=== PATIENT | male | born 1985 | race African-American/Black ===

== ENCOUNTER 2018-02-07 12:18 | Emergency (ER) | payer OTHER ==
[~2018-02-07] VITALS: Ht 167.6 cm; Wt 61.2 kg
[~2018-02-07 12:18] MED LIST: CITA20TA19 PO; CLON2TAB PO; EFAV1TAB PO
--- NOTE | 2018-02-07 12:32 | NUR ---
PT TO ED DT FEELING ANXIETY SINCE MONDAY, TAKES 2MG CLONAZEPAM, ATIVAN. OUT OF MEDS AT THIS TIME. VSS
[2018-02-07 12:53] VITALS: BP 130/80
--- NOTE | 2018-02-07 12:53 | NUR ---
Patient discharged to home in stable condition. Written and verbal after care instructions given. Patient verbalizes understanding of instruction.
== END 2018-02-07 12:53 | disposition home or self-care (01) ==
LOC: ER 12:22
DX: F41.9 Anxiety disorder, unspecified (principal); F17.200 Nicotine dependence, unspecified, uncomplicated; Z88.8 Allergy status to other drugs, medicaments and biological substances
CPT/HCPCS: A4606; Z7610

== ENCOUNTER 2018-03-06 12:19 | Emergency (ER) | payer OTHER ==
[~2018-03-06] VITALS: Ht 177.8 cm; Wt 68.0 kg
[2018-03-06] MEDS ORDERED: clonazePAM 1 MG TABLET ONE (12:43)
[2018-03-06] MEDS: clonazePAM 1 MG TABLET PO ONE (12:48)
[2018-03-06 12:55] VITALS: BP 118/84
== END 2018-03-06 12:56 | disposition home or self-care (01) ==
LOC: ER 12:21
DX: F41.9 Anxiety disorder, unspecified (principal); B08.1 Molluscum contagiosum; F17.200 Nicotine dependence, unspecified, uncomplicated; F32.9 Major depressive disorder, single episode, unspecified; Z76.0 Encounter for issue of repeat prescription; Z88.8 Allergy status to other drugs, medicaments and biological substances
CPT/HCPCS: 99284; 99406; A4606; Z7610

== ENCOUNTER 2018-03-17 06:25 | Emergency (ER) | payer OTHER ==
[~2018-03-17] VITALS: Ht 160 cm; Wt 61.2 kg
--- NOTE | 2018-03-17 06:30 | NUR ---
[address] C/O ANXIETY. PT ADMITS TO TAKING METH YESTERDAY. PT AOX3 RR EVEN AND UNLABORED. NO SOB NOTED. NAD NOTED. NO NVD AT THIS TIME. PT GOWNED AND PLACED ON MONITOR WAITING FOR MD MUNGUIA.
[2018-03-17] MEDS ORDERED: clonazePAM 1 MG TABLET ONE (07:15)
[2018-03-17 07:17] VITALS: BP 140/62
--- NOTE | 2018-03-17 07:17 | NUR ---
Patient discharged to home in stable condition. Written and verbal after care instructions given. Patient verbalizes understanding of instruction.
[2018-03-17] MEDS ORDERED: clonazePAM 1 MG TABLET PO ONE (07:30)
== END 2018-03-17 07:18 | disposition home or self-care (01) ==
LOC: ER 06:26
DX: F41.9 Anxiety disorder, unspecified (principal); F32.9 Major depressive disorder, single episode, unspecified; F15.20 Other stimulant dependence, uncomplicated; Z88.8 Allergy status to other drugs, medicaments and biological substances; Z79.899 Other long term (current) drug therapy
CPT/HCPCS: 99284; A4606; Z7610

== ENCOUNTER 2018-03-21 22:17 | Emergency (ER) | payer OTHER ==
[~2018-03-21] VITALS: Ht 165.1 cm; Wt 56.7 kg
--- NOTE | 2018-03-21 22:17 | NUR ---
"COUGH/SNEEZING SINCE YESTERDAY; FEEL SOB AND ALSO ANXIOUS" LUNGS SOUND CLEAR BILATERALLY. PT IS TACHYCARDIC BUT OTHERWISE VSS NO ACUTE DISTRESS AT THIS TIME. PT IS ALERT AND ORIENTED X3 ABLE TO MAKE NEEDS KNOWN. SKIN IS WATM AND INTACT. WILL CONTINUE TO MONITOR FOR ANY CHANGES DURING THE SHIFT.
--- NOTE | 2018-03-21 23:10 | NUR ---
CALLED; IN RESTROOM
--- NOTE | 2018-03-21 23:27 | NUR ---
STILL IN RESTROOM
[2018-03-21] MEDS ORDERED: LORAZEPAM INJ 2 MG/ML VIAL IV ONE (23:30)
--- NOTE | 2018-03-21 23:30 | NUR ---
ER MD AIKEN AT BEDSIDE FOR EVAL
[2018-03-22] MEDS ORDERED: clonazePAM 1 MG TABLET PO ONE
[2018-03-22] MEDS ORDERED: clonazePAM 1 MG TABLET ONE (00:01)
[2018-03-22 00:32] VITALS: BP 119/81
== END 2018-03-22 00:34 | disposition home or self-care (01) ==
LOC: ER 22:19
DX: F41.9 Anxiety disorder, unspecified (principal); Z76.0 Encounter for issue of repeat prescription; F17.200 Nicotine dependence, unspecified, uncomplicated; Z59.0 Homelessness; F32.9 Major depressive disorder, single episode, unspecified; Z88.8 Allergy status to other drugs, medicaments and biological substances
CPT/HCPCS: 99284; 99406; A4606; Z7610

== ENCOUNTER 2018-04-15 17:07 | Emergency (ER) | payer OTHER ==
[~2018-04-15] VITALS: Ht 167.6 cm; Wt 61.2 kg
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
[2018-04-15 17:46] VITALS: BP 135/81
--- NOTE | 2018-04-15 17:46 | NUR ---
Patient discharged to home in stable condition. Written and verbal after care instructions given. Patient verbalizes understanding of instruction.
== END 2018-04-15 17:47 | disposition home or self-care (01) ==
LOC: ER 17:08
DX: F41.9 Anxiety disorder, unspecified (principal); F32.9 Major depressive disorder, single episode, unspecified; F17.200 Nicotine dependence, unspecified, uncomplicated; Z88.8 Allergy status to other drugs, medicaments and biological substances; Z79.899 Other long term (current) drug therapy
CPT/HCPCS: 99284; A4606; Z7610

== ENCOUNTER 2018-05-05 16:32 | Emergency (ER) | payer OTHER ==
[~2018-05-05] VITALS: Ht 167.6 cm; Wt 62.6 kg
[2018-05-05 16:32] VITALS: BP 128/85
--- NOTE | 2018-05-05 17:15 | NUR ---
32 Y/O MALE PLACED IN BED 12 C/O ANXIETY. HEART RATE 125. ADMITS TO USING METH YESTERDAY.
--- NOTE | 2018-05-05 17:17 | NUR ---
ORDERS KLONONPIN FOR PT TO TRY TO REDUCE HEART RATE.
[2018-05-05] MEDS ORDERED: clonazePAM 1 MG TABLET ONE (17:21)
--- NOTE | 2018-05-05 17:24 | NUR ---
MEDICATION ORDERED. MONITORING PT.
[2018-05-05] MEDS ORDERED: clonazePAM 1 MG TABLET PO ONE (17:30)
--- NOTE | 2018-05-05 17:30 | NUR ---
HR - 116, SO2 - 99, BP - 121/82, RESP - 20
--- NOTE | 2018-05-05 17:41 | NUR ---
V/S HR 100, RESP. - 18, SO2 - 99, BP - 120/80
--- NOTE | 2018-05-05 17:44 | NUR ---
ANXIETY - RESOLVED. ACI WITH RX GIVEN. PT DISCHARGED HOME TO FOLLOW UP WITH PMD.
== END 2018-05-05 17:54 | disposition home or self-care (01) ==
LOC: ER 16:40
DX: F41.9 Anxiety disorder, unspecified (principal); F17.200 Nicotine dependence, unspecified, uncomplicated; F32.9 Major depressive disorder, single episode, unspecified; Z88.9 Allergy status to unspecified drugs, medicaments and biological substances
CPT/HCPCS: A4606; Z7610

== ENCOUNTER 2018-07-05 17:53 | Emergency (ER) | payer OTHER ==
[~2018-07-05] VITALS: Ht 167.6 cm; Wt 61.2 kg
[2018-07-05 17:53] VITALS: BP 113/82
[2018-07-05] MEDS ORDERED: clonazePAM 1 MG TABLET PO ONE (19:30)
[2018-07-05] MEDS ORDERED: clonazePAM 1 MG TABLET ONE (19:40)
== END 2018-07-05 19:49 | disposition home or self-care (01) ==
LOC: ER 17:59
DX: F41.9 Anxiety disorder, unspecified (principal); F32.9 Major depressive disorder, single episode, unspecified; F17.200 Nicotine dependence, unspecified, uncomplicated; Z88.8 Allergy status to other drugs, medicaments and biological substances; Z79.899 Other long term (current) drug therapy
CPT/HCPCS: A4606; Z7610

== ENCOUNTER 2018-07-20 12:39 | Emergency (ER) | END 2018-07-20 13:20 | disposition home or self-care (01) | DX: F41.9 Anxiety disorder, unspecified (principal); F32.9 Major depressive disorder, single episode, unspecified; F19.10 Other psychoactive substance abuse, uncomplicated; F17.200 Nicotine dependence, unspecified, uncomplicated; Z76.0 Encounter for issue of repeat prescription; Z88.8 Allergy status to other drugs, medicaments and biological substances; Z59.0 Homelessness ==

== ENCOUNTER 2018-08-03 17:13 | Emergency (ER) | payer OTHER ==
[~2018-08-03] VITALS: Ht 170.2 cm; Wt 60.3 kg
[2018-08-03 17:24] VITALS: BP 120/88
--- NOTE | 2018-08-03 17:39 | NUR ---
PT WALKED INTO EMERGENCY ROOM FOR C/C OF ANXIETY FOR SEVERAL DAYS PT RAN OUT OF MEDICATIONS. CURRENTLY PT CLAM RELAXING IN [facility] RESPIRATIONS EVEN
[2018-08-03] MEDS ORDERED: clonazePAM 1 MG TABLET PO ONE (18:30)
[2018-08-03] MEDS ORDERED: clonazePAM 1 MG TABLET ONE (18:39)
== END 2018-08-03 18:51 | disposition home or self-care (01) ==
LOC: ER 17:17
DX: F41.9 Anxiety disorder, unspecified (principal); F32.9 Major depressive disorder, single episode, unspecified; F19.10 Other psychoactive substance abuse, uncomplicated; F17.200 Nicotine dependence, unspecified, uncomplicated; Z88.8 Allergy status to other drugs, medicaments and biological substances; Z79.899 Other long term (current) drug therapy
CPT/HCPCS: 99283; A4606; Z7610

== ENCOUNTER 2018-08-29 10:13 | Emergency (ER) | payer OTHER ==
[~2018-08-29] VITALS: Ht 167.6 cm; Wt 64.0 kg
[2018-08-29 10:28] VITALS: BP 145/89
[2018-08-29] MEDS ORDERED: LORAZEPAM 1 MG TABLET PO ONE (12:00)
[2018-08-29] MEDS ORDERED: LORAZEPAM 1 MG TABLET ONE (12:20)
== END 2018-08-29 13:45 | disposition home or self-care (01) ==
LOC: ER 10:14
DX: F41.9 Anxiety disorder, unspecified (principal); K02.9 Dental caries, unspecified; F32.9 Major depressive disorder, single episode, unspecified; F17.200 Nicotine dependence, unspecified, uncomplicated; Z76.0 Encounter for issue of repeat prescription; Z59.0 Homelessness; Z88.8 Allergy status to other drugs, medicaments and biological substances

== ENCOUNTER 2018-11-06 16:41 | Emergency (ER) | payer OTHER ==
[~2018-11-06] VITALS: Ht 167.6 cm; Wt 61.2 kg
--- NOTE | 2018-11-06 16:48 | NUR ---
BIB [facility], C/O ANXIETY , USED METH BETWEEN 9 AND 10 THIS MORNING ACCORDING TO HIM. HAS SLIGHT COUGH THAT PT STATES ONLY OCCURS WHEN HE HAS ANXIETY. PT IS AOX4, AMB, HYPERTENSIVE AND TACHYCARDIC. RR EVEN AND UNLABORED. NO ACUTE DISTRESS NOTED. READY FOR EVAL.
[2018-11-06] MEDS ORDERED: clonazePAM 1 MG TABLET PO ONE ×2 (17:00→18:30)
[2018-11-06] MEDS ORDERED: clonazePAM 1 MG TABLET ONE ×2 (17:07→18:16)
--- NOTE | 2018-11-06 17:19 | NUR ---
Tatiana miguel in EDM - 11/06/18 at 2053 by SHELLEY PT ASKING FOR MORE ANTI-ANXIETY MED. ALFONZO NOTIFIED.
--- NOTE | 2018-11-06 17:30 | NUR ---
MEDICATION GIVEN PER ORDER. WILL CONT TO MONITOR.
[2018-11-06] MEDS ORDERED: BENZONATATE 100 MG CAPSULE PO PRN (18:00)
--- NOTE | 2018-11-06 18:23 | NUR ---
PT ASKING FOR MORE ANTI-ANXIETY MED. PA NOTIFIED.
--- NOTE | 2018-11-06 18:34 | NUR ---
PT SITTING COMFORTABLY IN BED. MEDICATION GIVEN. WILL CONT TO MONITOR.
--- NOTE | 2018-11-06 19:17 | NUR ---
Tatiana miguel in EDM - 11/06/18 at 2052 by SHELLEY PT ASKING FOR MORE ANTI-ANXIETY MED. ALFONZO NOTIFIED.
--- NOTE | 2018-11-06 19:30 | NUR ---
Patient given written and verbal discharge instructions. Patient verbalizes understanding of instructions. Patient is ambulatory with steady gait. Refuses offer of residential placement. Patient given list of available shelters in surrounding area.
[2018-11-06 20:56] VITALS: BP 138/88
== END 2018-11-06 19:30 | disposition home or self-care (01) ==
LOC: ER 16:41
DX: F41.9 Anxiety disorder, unspecified (principal); B08.1 Molluscum contagiosum; F32.9 Major depressive disorder, single episode, unspecified; F17.200 Nicotine dependence, unspecified, uncomplicated; Z59.0 Homelessness; Z88.8 Allergy status to other drugs, medicaments and biological substances; Z60.2 Problems related to living alone; Z79.899 Other long term (current) drug therapy

== ENCOUNTER 2018-11-17 08:17 | Emergency (ER) | payer OTHER ==
[~2018-11-17] VITALS: Ht 167.6 cm; Wt 61.2 kg
--- NOTE | 2018-11-17 08:50 | NUR ---
PATIENT ARRIVED AT UNIT AMBULATORY. WITH C/O FEELING ANXIOUS AND GI UPSET SINCE YESTERDAY AFTERNOON. NO ACUTE DISTRESS. AWAITING MD
--- NOTE | 2018-11-17 08:51 | NUR ---
DR PIERCE AT BEDSIDE
[2018-11-17] MEDS ORDERED: clonazePAM 1 MG TABLET PO ONE (09:00)
[2018-11-17] MEDS ORDERED: clonazePAM 1 MG TABLET ONE (09:06)
[2018-11-17 09:58] VITALS: BP 128/90
--- NOTE | 2018-11-17 09:59 | NUR ---
Patient given written and verbal discharge instructions. Patient verbalizes understanding of instructions. Patient is ambulatory with steady gait. Refuses offer of assisted placement. Patient given list of available shelters in surrounding area. Pt verbalized that he has means of paying bus. Refused [employer]. Name band removed. Pt in sahu jackoliverio, phillip, demetrio and joselitokerpetty. Patient provided w meal tray. Assisted to waiting room to eat.
== END 2018-11-17 10:05 | disposition home or self-care (01) ==
LOC: ER 08:19
DX: F41.9 Anxiety disorder, unspecified (principal); B08.1 Molluscum contagiosum; F32.9 Major depressive disorder, single episode, unspecified; F19.10 Other psychoactive substance abuse, uncomplicated; F17.200 Nicotine dependence, unspecified, uncomplicated; Z60.2 Problems related to living alone; Z88.8 Allergy status to other drugs, medicaments and biological substances
CPT/HCPCS: 71045-TC

== ENCOUNTER 2019-01-09 16:43 | Emergency (ER) | payer OTHER ==
[~2019-01-09] VITALS: Ht 167.6 cm; Wt 61.2 kg
[2019-01-09 16:53] VITALS: BP 136/90
[2019-01-09] MEDS ORDERED: clonazePAM 1 MG TABLET PO ONE (17:30)
[2019-01-09] MEDS ORDERED: clonazePAM 1 MG TABLET ONE (17:47)
--- NOTE | 2019-01-09 18:14 | NUR ---
Patient discharged to home in stable condition. Written and verbal after care instructions given. Patient verbalizes understanding of instruction.
== END 2019-01-09 18:15 | disposition home or self-care (01) ==
LOC: ER 16:47
DX: F41.9 Anxiety disorder, unspecified (principal); F13.20 Sedative, hypnotic or anxiolytic dependence, uncomplicated; F32.9 Major depressive disorder, single episode, unspecified; F17.200 Nicotine dependence, unspecified, uncomplicated; R00.0 Tachycardia, unspecified; Z76.0 Encounter for issue of repeat prescription; Z60.2 Problems related to living alone; Z88.8 Allergy status to other drugs, medicaments and biological substances

== ENCOUNTER 2019-01-19 17:13 | Emergency (ER) | payer OTHER ==
[~2019-01-19] VITALS: Ht 167.6 cm; Wt 61.2 kg
--- NOTE | 2019-01-19 17:20 | NUR ---
CAME IN FOR ANXIETY, DENIES SI/HI. TO ER BED 13, HOOKED TO MONITOR, PROVIDED W WARM BLANKET, AWAITING MD MUNGUIA
--- NOTE | 2019-01-19 17:36 | NUR ---
DR AIKEN AT BEDSIDE
[2019-01-19] MEDS ORDERED: LORAZEPAM 1 MG TABLET ONE ×2 (18:18→18:37)
[2019-01-19] MEDS ORDERED: LORAZEPAM 1 MG TABLET PO ONE ×2 (18:30→19:00)
--- NOTE | 2019-01-19 18:32 | NUR ---
PROVIDED W SANDWICH AND WATER
[2019-01-19 19:02] VITALS: BP 138/100
--- NOTE | 2019-01-19 19:06 | NUR ---
Patient signed homeless waiver form. Patient given written and verbal discharge instructions. Patient verbalizes understanding of instructions. Patient is ambulatory with steady gait. Refuses offer of nursing home placement. Patient given list of available shelters in surrounding area. Nameband removed, pt wearing jacket, pants and rubbershoes. Provided w tapcard. Assisted to waiting room.
== END 2019-01-19 19:11 | disposition home or self-care (01) ==
LOC: ER 17:13
DX: F41.9 Anxiety disorder, unspecified (principal); F19.10 Other psychoactive substance abuse, uncomplicated; F32.9 Major depressive disorder, single episode, unspecified; F17.200 Nicotine dependence, unspecified, uncomplicated; R00.0 Tachycardia, unspecified; Z59.0 Homelessness; Z76.0 Encounter for issue of repeat prescription; Z88.8 Allergy status to other drugs, medicaments and biological substances

== ENCOUNTER 2019-02-26 16:30 | Emergency (ER) | payer OTHER ==
[~2019-02-26] VITALS: Ht 154.9 cm; Wt 61.2 kg
[2019-02-26 16:49] VITALS: BP 148/101
[2019-02-26] MEDS ORDERED: clonazePAM 1 MG TABLET ONE (17:19)
[2019-02-26] MEDS ORDERED: clonazePAM 1 MG TABLET PO ONE (17:30)
--- NOTE | 2019-02-26 17:36 | NUR ---
Patient refused to sign Dc instruction he requested for MD . Notified Dr. Weiss no new orders and continue on DC patient patient agrees to follow up PMD in 1 day
--- NOTE | 2019-02-26 17:39 | NUR ---
Patient given written and verbal discharge instructions. Patient verbalizes understanding of instructions. Patient is ambulatory with steady gait. Refuses offer of nursing home placement. Patient given list of available shelters in surrounding area.
== END 2019-02-26 17:50 | disposition home or self-care (01) ==
LOC: ER 16:40
DX: F41.9 Anxiety disorder, unspecified (principal); F32.9 Major depressive disorder, single episode, unspecified; F17.200 Nicotine dependence, unspecified, uncomplicated; Z88.8 Allergy status to other drugs, medicaments and biological substances; Z59.0 Homelessness; Z79.899 Other long term (current) drug therapy

== ENCOUNTER 2019-03-22 02:12 | Emergency (ER) | payer OTHER | END 2019-03-22 03:42 | disposition home or self-care (01) | DX: F41.9 Anxiety disorder, unspecified (principal); F32.9 Major depressive disorder, single episode, unspecified; F17.200 Nicotine dependence, unspecified, uncomplicated; Z76.5 Malingerer [conscious simulation]; Z88.8 Allergy status to other drugs, medicaments and biological substances; Z59.0 Homelessness; Z79.899 Other long term (current) drug therapy ==

== ENCOUNTER 2019-11-07 11:26 | Emergency (ER) | payer OTHER ==
[~2019-11-07] VITALS: Ht 165.1 cm; Wt 54.4 kg
[2019-11-07] MEDS ORDERED: ONDANSETRON 4 MG TAB.RAPDIS SL ONE (12:00)
[2019-11-07] MEDS ORDERED: LORAZEPAM 0.5 MG TABLET PO ONE (12:00)
[2019-11-07] MEDS ORDERED: LORAZEPAM 0.5 MG TABLET ONE ×2 (12:02→14:37)
[2019-11-07] MEDS ORDERED: ONDANSETRON 4 MG TAB.RAPDIS ONE (12:03)
--- NOTE | 2019-11-07 12:10 | NUR ---
Patient awake alert non distress noted able to ambulated to bathroom urine obtained and send to lab
[2019-11-07 12:28] LABS: BASOPHILS % (AUTO) 0.7 % (0.0-2.0); HEMATOCRIT 24 % (39-51); HEMOGLOBIN 7.5 g/dL (13.5-17.5); LYMPHOCYTES # (AUTO) 0.4 /CMM (0.8-4.8); LYMPHOCYTES % (AUTO) 13.1 % (20.0-44.0); MEAN CORPUSCULAR HGB CONC 31 g/dl (31.0-36.0); MEAN CORPUSCULAR VOLUME 77 fL (80-96); MONOCYTES # (AUTO) 0.9 /CMM (0.1-1.30); MONOCYTES % (AUTO) 29.8 % (2.0-12.0); NEUTROPHILS # (AUTO) 1.7 /CMM (1.8-8.9); NEUTROPHILS % (AUTO) 56.4 % (43.0-81.0); PLATELET COUNT (AUTO) 306 /CMM (150-450); RED BLOOD CELL COUNT(AUTO) 3.06 MIL/uL (4.5-6.0)
[2019-11-07 12:31] LABS: ALBUMIN 1.8 g/dL (3.4-5.0); BILIRUBIN,TOTAL 0.2 mg/dL (0.2-1.0); CALCIUM, SERUM 6.6 mg/dL (8.5-10.1); CREATININE 0.7 mg/dL (0.6-1.3); TOTAL PROTEIN, SERUM 5.8 g/dL (6.4-8.2)
[2019-11-07 12:32] LABS: POTASSIUM 2.2 mmol/L (3.5-5.1)
[2019-11-07] MEDS ORDERED: IV PREMIX 0.45% NS + KCL 1,000 ML IV ONE (12:49)
[2019-11-07] MEDS ORDERED: POTASSIUM CHLORIDE 20 MEQ TAB.PRT.SR PO ONE ×2 (12:53→13:00)
[2019-11-07] MEDS ORDERED: IV NS 0.9% 1,000 ML BAG IV ONE (13:00)
[2019-11-07 13:12] LABS: BAND % (MANUAL) 3 % (0.0-5.0); LYMPHOCYTES % (MANUAL) 7 % (16-48); MONOCYTES % (MANUAL) 16 % (0-11.0); NEUTROPHILS % (MANUAL) 74 (42-76)
--- NOTE | 2019-11-07 13:14 | NUR ---
Noted patient awake ok to have snack ,no nausea and vomit @ this time
[2019-11-07] MEDS ORDERED: LORAZEPAM 1 MG TABLET PO ONE (14:00)
--- NOTE | 2019-11-07 16:08 | NUR ---
Patient asleep but arousable noted HR 120 denies pain or sob @ this time continue to monitor LAC fluid infusing well
[2019-11-07 16:36] VITALS: BP 105/67
--- NOTE | 2019-11-07 17:07 | NUR ---
Patient awake alert no nausea and vomit noted able to walk ,patient requested for Zofran and Ativan ,Dr. Perkins aware only for zofran patient agrees for follow up PMD in AM ,noted LAC IV removed cath intact no redness no edema
--- NOTE | 2019-11-07 17:09 | NUR ---
Patient discharged to home in stable condition. Written and verbal after care instructions given. Patient verbalizes understanding of instruction.
--- NOTE | 2019-11-07 17:11 | NUR ---
Patient Declined Long-Term refused to signed .
== END 2019-11-07 17:15 | disposition home or self-care (01) ==
LOC: ER 11:26
DX: E87.6 Hypokalemia (principal); F41.9 Anxiety disorder, unspecified; F32.9 Major depressive disorder, single episode, unspecified; F17.200 Nicotine dependence, unspecified, uncomplicated; Z88.8 Allergy status to other drugs, medicaments and biological substances; Z59.0 Homelessness; Z79.899 Other long term (current) drug therapy
CPT/HCPCS: 36415; 71045; 80048; 80076; 83690; 85025; 96365; 96366; 99284; J7030; Q0162